=== PATIENT | female | born 1995 | race Caucasian/White ===

== ENCOUNTER 2024-12-20 12:38 | Emergency (ER) | payer OTHER ==
[2024-12-20 12:45] VITALS: BP 128/71; PULSE 66; RESP 20; TEMP 98.2; BMI 21.6
[2024-12-20] MEDS ORDERED: KETOROLAC TROMETHAMINE 30 MG/1 ML VIAL ONE (13:40)
[2024-12-20] MEDS ORDERED: LIDOCAINE 4% PATCH TP ONE (13:40)
[2024-12-20] MEDS: KETOROLAC TROMETHAMINE 30 MG/1 ML VIAL IM ONE (13:47)
[2024-12-20] MEDS: LIDOCAINE 5% TOPICAL PATCH TP ONE (13:47)
[2024-12-20] MEDS ORDERED: LIDOCAINE PATCH REMOVAL MC SCH (22:00)
== END 2024-12-20 15:02 | disposition home or self-care (01) ==
LOC: JERFT 12:38
PROC: 3E0233Z Introduction of Anti-inflammatory into Muscle, Percutaneous Approach (ICD-10-PCS; principal; 2024-12-20)
DX: M25.511 Pain in right shoulder (principal); M54.6 Pain in thoracic spine; R20.0 Anesthesia of skin; R20.2 Paresthesia of skin
CPT/HCPCS: 73030-TC-RT-FY; 99284-25